=== PATIENT | male | born 1950 | race Caucasian/White ===

== ENCOUNTER 2018-12-07 19:12 | Emergency (ER) | payer MEDICARE, BC ==
[~2018-12-07 19:12] MED LIST: Sodium Chloride 0.9% 10 ML Syringe FLUSH PRN
[2018-12-07] MEDS ORDERED: Aspirin 81 MG Tab.Chew ONE (19:16)
[2018-12-07] MEDS ORDERED: Sodium Chloride 0.9% 1,000 ML IV ONE (19:23)
[2018-12-07] MEDS ORDERED: Aspirin 81 MG Tab.Chew PO ONE (19:25)
--- NOTE | 2018-12-07 19:51 | EDM.PDOC ---
<Everardo Traore - Last Filed: 12/07/18 19:46> ED HPI GENERAL MEDICAL PROBLEM - General Chief Complaint: General Stated Complaint: SYNCOPE EPISODE Time Seen by Provider: 12/07/18 19:12 Source of Information: Reports: EMS, Family () - History of Present Illness INITIAL COMMENTS - FREE TEXT/NARRATIVE: 68-year-old male with a history of dementia presents to the emergency room brought in by EMS for syncopal episode that occurred earlier today. Patient lives at home with his . He stated that he had a headache earlier this afternoon and was given some ibuprofen. He stated that he just didn't feel good. His escorted him out to the patio with a sat down and he began to feel worse. He became diaphoretic and unresponsive. called EMS. Upon arrival he was confused, diaphoretic and hypotensive. EKG showed normal sinus rhythm. IV was started in his left arm. He was not given any nitroglycerin due to his hypotension. His stated upon arrival that he has episodes like this about this time every year. He has no underlying heart disease that she is aware of. He does have hypertension which is controlled with medication. Does have a history of migraines in the past and does take Viagra. He has not taken Viagra in the last 48 hours. He is not diabetic. He does have a history of a bleeding ulcer and is on omeprazole. No history of stroke. She did state that he acquired malaria when in [place] for his service. He takes medication for his dementia. His primary care is the [facility] and clinic in [place]. His last checkup was 9 months ago. Onset: Sudden Onset Date: 12/07/18 Onset Time: 18:45 Duration: Minutes: Location: Reports: Generalized Improves with: Reports: None Worsens with: Reports: None Associated Symptoms: Reports: Confusion, Chest Pain, Diaphoresis, Headaches, Nausea/Vomiting, Syncope, Weakness Treatments HIDES SOAKER: Reports: NSAIDS - Related Data Allergies Allergy/AdvReac Type Severity Reaction Status Date / Time zolpidem [From Ambien] Allergy Hypotension Verified 12/07/18 19:30 Home Meds: Home Meds Ibuprofen [Motrin] 800 mg PO TID PRN 06/14/13 [History] Multivitamin [Multivitamins] 1 cap PO DAILY 06/14/13 [History] Rosuvastatin [Crestor] 10 mg PO BEDTIME 06/14/13 [History] Terazosin [Hytrin] 5 mg PO BEDTIME 06/14/13 [History] Venlafaxine HCl [Venlafaxine ER] 150 mg PO DAILY 06/14/13 [History] Donepezil HCl 10 mg PO DAILY 12/07/18 [History] Esomeprazole Magnesium [Nexium 24Hr] 40 mg PO DAILY 12/07/18 [History] Lutein/Minerals/Vit A,C & E [I-Katy] 1 tab PO DAILY 12/07/18 [History] Memantine HCl 10 mg PO BID 12/07/18 [History] Vitamin E 2,000 unit PO DAILY 12/07/18 [History] Past Medical History - Past Health History Medical/Surgical History: Denies Medical/Surgical History Social & Family History - Tobacco Use Smoking Status *Q: Former Smoker Used Tobacco, but Quit: Yes Month/Year Tobacco Last Used: 1979 - Caffeine Use Caffeine Use: Reports: Coffee, Soda - Recreational Drug Use Recreational Drug Use: No - Living Situation & Occupation Living situation: Reports: Occupation: Employed ED ROS GENERAL - Review of Systems Review Of Systems: Unable To Obtain ED EXAM, GENERAL - Physical Exam Exam Limited By: Altered Mental Status (dementia) General Appearance: Alert, Moderate Distress, Other (Diaphoretic) Eye Exam: Bilateral Eye: EOMI, PERRL Ears: Normal External Exam, Normal Canal, Hearing Grossly Normal, Normal TMs Ear Exam: Bilateral Ear: TM normal Nose: Normal Inspection, Normal Mucosa, No Blood Throat/Mouth: Normal Inspection, Normal Lips, Normal Gums, Normal Oropharynx, Normal Voice, No Airway Compromise Head: Atraumatic, Normocephalic Neck: Normal Inspection, Supple, Non-Tender, Full Range of Motion. No: Carotid Bruit, Lymphadenopathy (L), Lymphadenopathy (R) Respiratory/Chest: No Respiratory Distress, Lungs Clear, Normal Breath Sounds, No Accessory Muscle Use Cardiovascular: Normal Peripheral Pulses, Regular Rate, Rhythm, No Murmur Peripheral Pulses: 2+: Carotid (L), Carotid (R), Radial (L), Radial (R), Dorsalis Pedis (L), Dorsalis Pedis (R) GI/Abdominal: Normal Bowel Sounds, Soft, Non-Tender, No Organomegaly, No Distention, No Mass, Pelvis Stable (Male) Exam: Other (Incontinent) Extremities: Normal Inspection, Normal Range of Motion Neurological: Alert, CN II-XII Intact, No Motor/Sensory Deficits, Memory Loss Remote Events, Memory Loss Recent Events Psychiatric: Normal Mood, Flat Affect Skin Exam: Cool, Diaphoretic Lymphatic: No Adenopathy EKG INTERPRETATION EKG Date: 12/07/18 Time: 19:15 Rhythm: NSR Rate (Beats/Min): 68 [place]: Normal P-Wave: Present QRS: Normal ST-T: Normal QT: Normal Comparison: NA - No Prior EKG EKG Interpretation Comments: Normal sinus rhythm normal ECG Course - Vital Signs Last Recorded V/S: Last Vital Signs Temp 96.2 F 12/07/18 21:47 Pulse 61 12/07/18 23:01 Resp 18 12/07/18 23:01 BP 119/90 12/07/18 23:01 Pulse Ox 97 12/07/18 21:47 - Orders/Labs/Meds Orders: Active Orders 24 hr Category Date Time Status Blood Glucose Check, Bedside [RC] ONETIME Care 12/07/18 19:31 Active EKG Documentation Completion [RC] ASDIRECTED Care 12/07/18 19:23 Active Peripheral IV Care [RC] . DIRECTED Care 12/07/18 19:10 Active Abdomen Pelvis w Cont [CT] Stat Exams 12/07/18 19:42 Ordered Chest w Cont [CT] Stat Exams 12/07/18 19:42 Ordered Head wo Cont [CT] Stat Exams 12/07/18 19:30 Ordered UA W/MICROSCOPIC [URIN] Stat Lab 12/07/18 19:38 Ordered Sodium Chloride 0.9% [Normal Saline] 1,000 ml Med 12/07/18 20:15 Active IV ASDIRECTED Sodium Chloride 0.9% [Normal Saline] 50 ml Med 12/07/18 21:00 Active IV ASDIRECTED Sodium Chloride 0.9% [Saline Flush] Med 12/07/18 19:10 Active 10 ml FLUSH Q8HR PRN Peripheral IV Insertion Adult [OM.PC] Routine Oth 12/07/18 19:10 Ordered EKG 12 Lead [EK] Routine Ther 12/07/18 19:22 Ordered Medication Orders Sodium Chloride (Normal Saline) 1,000 mls @ 100 mls/hr IV ASDIRECTED JARRED Last Admin: 12/07/18 20:15 Dose: 100 mls/hr Sodium Chloride (Normal Saline) 50 mls @ 200 mls/hr IV ASDIRECTED JARRED Last Admin: 12/07/18 20:54 Dose: 200 mls/hr Sodium Chloride (Saline Flush) 10 ml FLUSH Q8HR PRN PRN Reason: keep vein open Last Admin: 12/07/18 22:47 Dose: 10 ml Labs: Laboratory Tests 12/07/18 12/07/18 12/07/18 Range/Units 19:00 19:00 19:00 WBC 4.08 L (5.00-10.00) 10^3/uL RBC 4.89 (4.50-6.00) 10^6/uL Hgb 14.5 (13.0-17.0) g/dL Hct 41.9 (40.0-52.0) % MCV 85.7 (82.0-92.0) fL MCH 29.7 (27.0-31.0) pg MCHC 34.6 (32.0-36.0) g/dL RDW 13.3 (11.5-14.5) % Plt Count 206 (150-400) 10^3/uL MPV 9.4 (7.4-10.4) fL Immature Gran % (Auto) 0.0 (0.0-5.0) % Neut % (Auto) 58.2 (50.0-70.0) % Lymph % (Auto) 27.5 (20.0-40.0) % [place] % (Auto) 11.8 H (2.0-8.0) % Eos % (Auto) 2.0 (1.0-3.0) % Baso % (Auto) 0.5 (0.0-1.0) % Immature Gran # (Auto) 0.00 (0.00-0.50) 10^3/uL Neut # (Auto) 2.38 L (2.50-7.00) 10^3/uL Lymph # (Auto) 1.12 (1.00-4.00) 10^3/uL [place] # (Auto) 0.48 (0.10-0.80) 10^3/uL Eos # (Auto) 0.08 L (0.10-0.30) 10^3/uL Baso # (Auto) 0.02 (0.00-0.10) 10^3/uL D-Dimer, Quantitative 222 (<400) ng/mL Sodium 139 (136-145) mmol/L Potassium 3.8 (3.3-5.3) mmol/L Chloride 105 (98-115) mmol/L Carbon Dioxide 19.8 L (21.0-32.0) mmol/L Anion Gap 18.0 H (5-15) mmol/L BUN 16 (6-25) mg/dL Creatinine 0.95 (0.51-1.17) mg/dL Est Cr Clr Drug Dosing 78.16 mL/min Estimated GFR (MDRD) > 60 mL/min Glucose 128 H (75 - 99) mg/dL POC Glucose (74-106) mg/dl Calcium 9.1 (8.7-10.3) mg/dL Creatine Kinase 41 (26-276) U/L Troponin I < 0.04 (0.00-0.070) ng/mL B-Natriuretic Peptide < 5 (0-100) pg/mL Lipase (73-393) U/L 12/07/18 12/07/18 12/07/18 Range/Units 19:31 22:15 22:15 WBC (5.00-10.00) 10^3/uL RBC (4.50-6.00) 10^6/uL Hgb (13.0-17.0) g/dL Hct (40.0-52.0) % MCV (82.0-92.0) fL MCH (27.0-31.0) pg MCHC (32.0-36.0) g/dL RDW (11.5-14.5) % Plt Count (150-400) 10^3/uL MPV (7.4-10.4) fL Immature Gran % (Auto) (0.0-5.0) % Neut % (Auto) (50.0-70.0) % Lymph % (Auto) (20.0-40.0) % [place] % (Auto) (2.0-8.0) % Eos % (Auto) (1.0-3.0) % Baso % (Auto) (0.0-1.0) % Immature Gran # (Auto) (0.00-0.50) 10^3/uL Neut # (Auto) (2.50-7.00) 10^3/uL Lymph # (Auto) (1.00-4.00) 10^3/uL [place] # (Auto) (0.10-0.80) 10^3/uL Eos # (Auto) (0.10-0.30) 10^3/uL Baso # (Auto) (0.00-0.10) 10^3/uL D-Dimer, Quantitative (<400) ng/mL Sodium (136-145) mmol/L Potassium (3.3-5.3) mmol/L Chloride (98-115) mmol/L Carbon Dioxide (21.0-32.0) mmol/L Anion Gap (5-15) mmol/L BUN (6-25) mg/dL Creatinine (0.51-1.17) mg/dL Est Cr Clr Drug Dosing mL/min Estimated GFR (MDRD) mL/min Glucose (75 - 99) mg/dL POC Glucose 133 H (74-106) mg/dl Calcium (8.7-10.3) mg/dL Creatine Kinase (26-276) U/L Troponin I < 0.04 (0.00-0.070) ng/mL B-Natriuretic Peptide (0-100) pg/mL Lipase 108 (73-393) U/L Meds: Medications Generic Name Dose Route Start Last Admin Trade Name Freq PRN Reason Stop Dose Admin Sodium Chloride 1,000 mls @ 100 mls/hr 12/07/18 20:15 12/07/18 20:15 Normal Saline IV 100 mls/hr ASDIRECTED JARRED Administration Sodium Chloride 50 mls @ 200 mls/hr 12/07/18 21:00 12/07/18 20:54 Normal Saline IV 200 mls/hr ASDIRECTED JARRED Administration Sodium Chloride 10 ml 12/07/18 19:10 12/07/18 22:47 Saline Flush FLUSH 10 ml Q8HR PRN Administration keep vein open Discontinued Medications Generic Name Dose Route Start Last Admin Trade Name Freq PRN Reason Stop Dose Admin Aspirin Confirm 12/07/18 19:16 12/07/18 19:28 Aspirin Administered 12/07/18 19:17 Not Given Dose 324 mg .ROUTE .STK-MED ONE Aspirin 324 mg 12/07/18 19:25 12/07/18 19:16 Aspirin PO 12/07/18 19:26 324 mg ONETIME ONE Administration Sodium Chloride 1,000 mls @ 1,000 mls/hr 12/07/18 19:23 12/07/18 19:28 Normal Saline IV 12/07/18 20:22 1,000 mls/hr .BOLUS ONE Administration Iopamidol 100 ml 12/07/18 20:53 12/07/18 20:54 Isovue-370 (76%) IV 12/07/18 20:54 100 ml ONETIME ONE Administration Ondansetron HCl 4 mg 12/07/18 22:38 12/07/18 22:42 Zofran IVPUSH 12/07/18 22:39 4 mg ONETIME ONE Administration - Re-Assessments/Exams Free Text/Narrative Re-Assessment/Exam: 12/07/18 19:57 Patient was given for any 1 mg baby aspirin to chew. IV was placed in the right antecubital 0.2-gauge needle and 1 L of normal saline running wide open was begin. Patient said diaphoresis improved. He is resting comfortably at bedside at this time. Blood pressure is stable and improved at 104/60. Pulses 55 Departure - Departure Disposition: Home, Self-Care 01 Clinical Impression: Episode of syncope Qualifiers: Encounter type: initial encounter - Discharge Information Referrals: PCP,Not In Area [Primary Care Provider] - Forms: ED Department Discharge Additional Instructions: 1. Drink 8 cups of water each day and try to reduce Coke and coffee intake. 2. Catch a clean urine specimen tomorrow morning in the sterile cup provided. 3. Follow up in clinic tomorrow for recheck and take the urine specimen with you for evaluation. 4. You can take the Zofran if nausea or vomiting returns. 5. Return to ER as needed. <Markie Crespo - Last Filed: 12/07/18 23:33> ED EXAM, GENERAL - Physical Exam Exam: See Below Course - Re-Assessments/Exams Free Text/Narrative Re-Assessment/Exam: 12/07/18 21:29 CTs of head, chest, abdomen, pelvis show only a moderate to large hiatal hernia and some simple right renal cysts but are otherwise unremarkable. Patient is feeling well now; denies any pain in head, neck, arms, shoulders, chest, abdomen or extremities. His tells me more about the previous "annual" occurrences of these diaphoretic/syncopal episodes. She says they have always occurred during the month of June and he has had one each of the 5 years they have been . She doesn't know previous to that. She tells me that pt is a [place]et and had a very traumatic experience involving the loss of most of his company during the month of June while he was in [place]. She wonders if this is related; he does have PTSD. She says the diaphoretic episodes are always resolved before they can seek medical care but are very profuse leaving a his clothes drenched. They always occur in the evening or night. 12/07/18 22:38 Patient developed some burning mid-epigastric pain and vomited a mod/large emesis. 12/07/18 23:01 Patient is feeling much better after the vomiting and now Zofran is in. Second troponin is negative and lipase is normal. Discussed findings and recommendations with patient and his . Patient would like to go home and feels ready. Since we didn't get a UA and patient doesn't want a catheter. I don't suspect a UTI based on any findings. Will send home urine cup for morning specimen and follow up in clinic tomorrow. He usually goes to [facility] but can f/u here in clinic without problem. Discharged to home in stable condition. Departure - Departure Time of Disposition: 23:05 Condition: Good
[2018-12-07 20:06] LABS: CHLORIDE,CL 105 mmol/L (98-115); SODIUM,NA 139 mmol/L (136-145)
[2018-12-07] MEDS ORDERED: Sodium Chloride 0.9% 1,000 ML IV SCH (20:15)
[2018-12-07] MEDS ORDERED: Iopamidol 755 Mg/ML 100 ML Bottle IV ONE (20:53)
[2018-12-07] MEDS ORDERED: Sodium Chloride 0.9% 50 ML IV SCH (21:00)
[2018-12-07] MEDS ORDERED: Ondansetron 4 MG/2 ML SDV IVPUSH ONE (22:38)
[2018-12-07] MEDS ORDERED: Ondansetron 4 MG Tab.DIS PO ONE (23:08)
--- NOTE | 2018-12-08 08:57 | CT ---
[id number] CT/CT Head WO IV EXAM: CT Head WO IV CLINICAL DATA: SYNCOPY COMPARISON STUDY: None FINDINGS: No intracranial hemorrhage, extra-axial fluid collection, mass, or acute ischemia. Generalized parenchymal atrophy with scattered areas of nonspecific white matter disease, commonly seen as sequela of chronic microvascular ischemia. Soft tissues are unremarkable. Paranasal sinuses and mastoid air cells are clear. IMPRESSION: No acute intracranial findings. Nikolas Ellis DO 12/08/18 0854 Thank you for allowing us to participate in the care of your patient.
--- NOTE | 2018-12-08 09:02 | CT ---
[id number] CT/CT Chest Abdomen Pelvis W IV Exam: CT Chest Abdomen Pelvis W IV Clinical Data: SYNCOPE COMPARISON: NO PREVIOUS SIMILAR EXAM IS AVAILABLE FINDINGS: The great vessels are intact There is no mediastinal mass or hemorrhage There is no pleural effusion, pneumothorax, or pulmonary parenchymal infiltrate There is a large hiatal hernia The liver and spleen, adrenals, kidneys, pancreas, and aorta otherwise show no acute abnormalities There are multiple large right-sided renal cysts The gallbladder is not distended. There is no bowel obstruction, free air, or free fluid. The pelvis shows no mass or adenopathy. There is uncomplicated diverticular disease of the colon. The appendix appears normal. IMPRESSION: NO ACUTE PROCESS Yeyo Hoffmann MD 12/08/18 0859 Thank you for allowing us to participate in the care of your patient.
== END 2018-12-07 23:40 | disposition home or self-care (01) ==
LOC: KA.ED 19:12
DX: R55 Syncope and collapse (principal); Z88.8 Allergy status to other drugs, medicaments and biological substances; Z79.899 Other long term (current) drug therapy; Z87.891 Personal history of nicotine dependence
CPT/HCPCS: 70450; 71260; 74177; 80048; 82550; 82962; 83690; 83880; 84484; 85025; 85379; 93005; 96361; 96374; 99284; 99285-25; A9270-GY; J2405; J7030; J7050; Q9967